=== PATIENT | female | born 1955 | race Two or more races ===

== ENCOUNTER 2024-10-03 11:41 | Emergency (ER) | payer MEDICARE, MEDICAID, SELFPAY ==
[2024-10-03 11:53] VITALS: BP 151/81; PULSE 72; RESP 19; TEMP 36.6; O2SAT 96; BMI 28.9
--- NOTE | 2024-10-03 12:01 | XR_ITS ---
Examination: Tibia-Fibula, left , 2 views Technique: Tibia-fibula AP lateral 2 views Date and time of exam: October 03, 2024 1308 hours INDICATIONS: Leg swelling beginning 2 weeks ago. FINDINGS: Prominent osteopenia Bimalleolar soft tissue swelling. No fracture. No cortical bone destruction IMPRESSION: No fracture No cortical bone destruction
--- NOTE | 2024-10-03 12:01 | XR_ITS ---
Examination: Duplex scan of the lower extremity, unilateral left Date and time of exam: October 03, 2024 1320 hours INDICATIONS: Left lower leg swelling and pain beginning 2 weeks ago, lump in the ankle Technique: Duplex scan of the extremity veins using B-mode/grayscale imaging and Doppler spectral analysis and color flow Attention is directed to internal echogenicity, compression involving these veins, color flow assessment, spectral analysis Findings: Positive for nonocclusive thrombus in the left common femoral vein The superficial femoral, popliteal, peroneal posterior tibial veins are open IMPRESSION: Positive for partial acute deep vein thrombus involving the left common femoral vein
--- NOTE | 2024-10-03 12:02 | EDRME_ITS ---
Rapid Medical Screening Exam [facility] Arrival date/time: 10/03/24 11:41 69-year-old female with no known medical history presents to the emergency room with a chief complaint of left tib-fib tenderness, swelling x 1 week. Patient also has some mild swelling to the right lower extremity. Patient denies any trauma or injury to the area. I have greeted and performed a focused initial assessment of this patient. A comprehensive ED assessment and evaluation of the patient, analysis of all test results, and completion of the medical decision making process will be conducted by additional ED providers. Chief Complaint: Skin/Abscess/Foreign Body Time Seen by Provider: 10/03/24 11:46 Vital signs: Vital Signs Temperature 97.9 F 10/03/24 11:53 Pulse Rate 72 10/03/24 11:53 Respiratory Rate 19 10/03/24 11:53 Blood Pressure 151/81 H 10/03/24 11:53 Pulse Oximetry (%) 96 10/03/24 11:53 Oxygen Delivery Method Room Air 10/03/24 11:53 Vital signs reviewed by provider: Yes
[2024-10-03 12:38] LABS: Basophils % (Auto) 1 % (0-2.5); Eosinophils # (Auto) 0.1 Thou/mm3 (0.0-0.5); Eosinophils % (Auto) 2 % (0-10); Hematocrit 37.5 % (36.0-46.0); Immature Granulocytes % (Auto) 0 % (0-0); Immature Granulocytes Auto 0.02 Thou/mm3 (0.00-0.00); Lymphocytes # (Auto) 1.4 Thou/mm3 (1.0-4.8); Lymphocytes % (Auto) 27 % (10-50); Mean Corpuscular Hemoglobin 28.2 pg (25.0-35.0); Mean Corpuscular Volume 88 fL (80-100); Monocytes # (Auto) 0.4 Thou/mm3 (0.0-0.8); Monocytes % (Auto) 7 % (0-12); Neutrophils # (Auto) 3.5 Thou/mm3 (1.8-7.7); Neutrophils % (Auto) 64 % (37-80); Nucleated Red Blood Cell % 0 /100 WBC (0); Platelet Count 279 Thou/mm3 (140-440); RDW Standard Deviation 51.3 fL (36.4-46.3); Red Blood Count 4.25 Miln/mm3 (4.00-5.20); White Blood Count 5.4 Thou/mm3 (3.6-11.0)
[2024-10-03 12:56] LABS: B-Type Natriuretic Peptide 51 pg/mL (0-100)
[2024-10-03 12:58] LABS: Alanine Aminotransferase 21 U/L (10-49); Albumin, Serum 4.5 gm/dL (3.4-4.8); Albumin/Globulin Ratio 1.6 (1.2-2.2); Alkaline Phosphatase 72 U/L (46-116); Anion Gap 9 (7-16); Aspartate Amino Transferase 28 U/L (0-34); BUN/Creatinine Ratio 17 Ratio (12-20); Bilirubin,Total 0.6 mg/dL (0.3-1.2); Blood Urea Nitrogen 12 mg/dL (9-23); Calcium 9.2 mg/dL (8.3-10.6); Calcium (Corrected) 9.2 mg/dL (8.5-10.1); Chloride 111 mMol/L (98-107); Creatinine (Component) 0.7 mg/dL (0.6-1.3); Estimated Creatinine Clearance 72.3 mL/min (>60); Globulin 2.8 gm/dL (2.3-3.5); Glucose 127 mg/dL (74-106); Osmolality,Calculated 288 (275-295); Potassium 3.8 mMol/L (3.4-5.1); Sodium 144 mMol/L (136-145); Total Protein 7.3 gm/dL (5.7-8.2); Troponin I < 0.002 ng/mL (0.0-0.045); eGFR > 60 See Note
--- NOTE | 2024-10-03 14:54 | PD.EDSKIN ---
ED Skin Abcess FB-RME/HPI General Chief complaint: Skin/Abscess/Foreign Body Stated complaint: MASS/BUMP ON LEFT LEG Time Seen by Provider: 10/03/24 11:46 Arrival date/time: 10/03/24 11:41 RME / HPI RME / HPI narrative: 69-year-old female with no known medical history presents to the emergency room with a chief complaint of left tib-fib tenderness, swelling x 1 week. Patient also has some mild swelling to the right lower extremity. Patient denies any trauma or injury to the area. Patient was seen by PCP, and was started on antibiotic. Persistent symptoms prompted this ER visit. Denies any chest pain denies any other complaints. Denies any history of blood clots. Or family history of blood clots. Patient denies any history of cancer also. She is not taking any blood thinner. Related Data Previous Rx's ?Medication ?Instructions ?Recorded apixaban 5 mg tablet (Eliquis) 5 mg PO BID #60 tabs 10/03/24 apixaban 5 mg tablet (Eliquis) 10 mg (2 x 5 mg) PO BID 7 days #28 10/03/24 tabs Allergies Allergy/AdvReac Type Severity Reaction Status Date / Time No Known Allergies Allergy Verified 10/03/24 11:43 Review of Systems Review of Systems Narrative Review of Systems: Review of system reviewed and within normal limits except mentioned in HPI ED Exam Narrative Physical exam: VITAL SIGNS: Reviewed. GENERAL APPEARANCE: Alert and interactive, follows commands, no acute distress, HEAD AND FACE: Non-traumatic. ENT: PERRL, pink conjunctivitis, eyelid no trauma, Mucous membrane moist. NECK: Supple, nontender, no nuchal rigidity. CHEST: No tenderness, no crepitus, no paradoxical movement, no retractions. LUNGS: Clear, well ventilated, symmetric, no rales, no wheezing, no ronchi, no stridor, good breath sounds bilaterally. HEART: Regular rate, regular rhythm, no murmur, no gallops. ABDOMEN: Soft, positive bowel sounds, nondistended, no guarding, nontender, no rebound, no masses, RECTAL: Deferred. GENITAL: Deferred. NEUROLOGICAL: Gross motor function intact sensory function intact, Appropriate for age. MUSCULOSKELETAL: low back nontender, full range of motion. EXTREMITIES: Left lower leg swelling with mild tenderness, full range of motion. SKIN: Color pink, dry, no rash, no lacerations, no abrasions, no contusions. LYMPHATICS: Deferred. Course Quality Measures none Orders Category Date Time Status US venous doppler LE LT Stat Exams 10/03/24 12:01 Completed XR tibia fibula LT 2V Stat Exams 10/03/24 12:01 Completed BNP [B-Type Natriuretic Peptide] Stat Lab 10/03/24 12:28 Completed CBC Stat Lab 10/03/24 12:28 Completed CMP [Comprehensive Metabolic Panel] Stat Lab 10/03/24 12:28 Completed Troponin I Stat Lab 10/03/24 12:28 Completed Apixaban [Eliquis] Med 10/03/24 14:54 Discontinued 10 mg PO X1 ONE Vital Signs Vital signs: Vital Signs Temperature 97.9 F 10/03/24 11:53 Pulse Rate 72 10/03/24 11:53 Respiratory Rate 19 10/03/24 11:53 Blood Pressure 151/81 H 10/03/24 11:53 Pulse Oximetry (%) 96 10/03/24 11:53 Oxygen Delivery Method Room Air 10/03/24 11:53 Skin / Abscess / Foreign Body MDM Narrative MDM Narrative:: 69-year-old female with no known medical history presents to the emergency room with a chief complaint of left tib-fib tenderness, swelling x 1 week. Patient also has some mild swelling to the right lower extremity. Patient denies any trauma or injury to the area. Patient was seen by PCP, and was started on antibiotic. Persistent symptoms prompted this ER visit. Denies any chest pain denies any other complaints. Denies any history of blood clots. Or family history of blood clots. Patient denies any history of cancer also. She is not taking any blood thinner. Patient's workup is significant for DVT. Otherwise unremarkable. Patient was given Eliquis in the emergency room. Patient will be sent home on Eliquis. Patient appears nontoxic and hemodynamically stable. Patient discharged home and instructed to follow-up with primary care provider in 24 to 48 hours. Instructed to return to the emergency department immediately if worsening of symptoms Patient data External records reviewed:: None Clinical information provided by:: patient Social determinants that could affect healthcare access:: none Patient has the following chronic illnesses:: None How is presenting disease/condition affected by chronic disease/condition?: no chronic disease Evaluation data The following diagnostics were reviewed and interpreted by me:: lab results and radiology exam(s) Lab and/or radiology exams considered but not ordered:: None Interpretation Summary: See results MDM Medications / Prescriptions Medications or Prescriptions considered but not ordered:: 9 Medication administrations:: Medication Administration History Discontinued Medications Apixaban (Apixaban 2.5 Mg Tablet) 10 mg PO X1 ONE Stop: 10/03/24 14:55 Eliquis Consultations Consultation(s) initiated? (list below): No Diagnosis Skin/Abscess Differential Diagnosis: cellulitis and other (Leg swelling, the DVT) Most likely diagnosis given after review of the tests above:: DVT left lower extremity Admission Indicated Admission indicated?: not indicated Admission Request Was there a request for admission?: No Disposition Plan Disposition Plan: Discharge Discharge Attestation Discharge Attestation: The patient and all family members were given an opportunity to ask questions and understood the discharge instructions. Discharge instructions specifically effects, indications for sooner follow up or return to the emergency department, and the expected course of current diagnosis. Patient condition: Stable Discharge Plan Plan Patient Disposition: HOME (Self Care) Disposition Comment: Stable Prescriptions/Referrals Prescriptions/Med Rec: New Eliquis 5 mg tablet 10 mg PO BID 7 Days Qty: 28 0RF Eliquis 5 mg tablet 5 mg PO BID Qty: 60 0RF Rx Instructions: Start after 1 week Referrals: No Primary/Family,Physician [Primary Care Provider] - In 1 week Problem List Clinical Impression: Dvt femoral (deep venous thrombosis) Patient/Caregiver Discharge Instructions Discharge Activity: activity as tolerated Education Materials: ED Deep Vein Thrombosis (DVT) Additional Instructions: Thank you for the opportunity for serving you today. You are stable for discharged . You are advised to: Follow-up with your PCP in 1 to 2 days Return to ED for worsening of symptoms Increase oral fluids Take medication as prescribed Do not massage your leg Print Language: Upper Sorbian Stand Alone Forms: Laura Award Info., Patient Portal Info Letter
[2024-10-03] MEDS: APIXABAN 2.5 MG TABLET 10 MG PO (15:59)
== END 2024-10-03 16:08 | disposition home or self-care (01) ==
PROVIDERS: Nurse Practitioner Family; Emergency Provider Emergency Medicine
DX: I82.412 Acute embolism and thrombosis of left femoral vein (principal)
CPT/HCPCS: 36415; 73590; 80053; 83880; 84484; 85025; 93971; 99284; A9270

== ENCOUNTER → 2025-06-03 | Outpatient (CLI) | payer MEDICARE, MEDICAID, SELFPAY ==
--- NOTE | 2025-06-03 11:45 | XR_ITS ---
Examination: Screening digital mammography, bilateral Computer aided detection 3-D breast Tomosynthesis, bilateral Date and time of exam: June 03, 2025, 1110 hours, compared to mammogram dating to September 22, 2017 Indication: Screening Technique: Nonmagnified MLO, CC views of the breasts to been obtained, reconstructed from 3-D Tomosynthesis images. R2 computer aided detection program utilized for evaluation of suspicious masses and/or abnormal calcifications. 3-D Tomosynthesis images obtained. Findings: Scattered areas of fibroglandular density. Benign calcifications. 12:00 focus suspicious microcalcifications left breast No suspicious nodule Impression: BI-RADS Category 0: Incomplete: Need additional imaging evaluation Recommend follow-up spot tomographic views of 12:00 focus suspicious microcalcifications left breast as well as bilateral breast sonography to complete work-up
== END | disposition home or self-care (01) ==
PROVIDERS: PCP Family Medicine; Referring Provider Family Medicine; Visit Provider Family Medicine
DX: Z12.31 Encounter for screening mammogram for malignant neoplasm of breast (principal); R92.8 Other abnormal and inconclusive findings on diagnostic imaging of breast; R92.0 Mammographic microcalcification found on diagnostic imaging of breast
CPT/HCPCS: 77063; 77067